=== PATIENT | male | born 1965 | race Hispanic/Latino ===

== ENCOUNTER → 2018-10-24 | Day surgery (SDC) | payer BC ==
[~2018-10-24] MED LIST: BACLOFEN10 MG PO; CIALIS5 MG PO; DEXAMETHASONE SOD PHOS INJ 4 MG/ML VIAL ONE; EPHEDRINE SULFATE INJ 50 MG/10 ML SYR ONE; GABAPENTIN100 MG; GABAPENTIN300 MG PO; IOPAMIDOL 610MG/1ML 300 MG/ML VIAL IV ONE; JANUVIA100 MG PO; LEVOFLOXACIN 500MG/D5W 100ML 100 ML IV ONE; LIDOCAINE HCL 2% LOCAL INJ 5 ML SDV VIAL INJ ONE; LISINOPRIL10 MG PO; METFORMIN HCL1000 MG PO; MIDAZOLAM HCL 2 MG/2 ML VIAL ONE; OMEGA-31000 MG; OMEGA-31000 MG PO; ONDANSETRON HCL INJ 2MG/ML 2ML 2 MG/ML VIAL ONE; PROPOFOL IV EMULSION 10 MG/ML 20 ML VIAL ONE; SEVOFLURANE INHAL SOLN 250 ML PEN BTL ONE
--- OUTSIDE RECORDS SUMMARY | 2018-10-24 11:37 | XMS REPORT | Clinical Summary ---
Author Author [facility] Organization [facility] Address Unknown Phone Unavailable Care Team Providers Care Internal Sales Engineer Name Role Phone Manohar Eldridge MD PCP Allergies No Known Allergies Medications End Date Status Medication Sig Dispensed Refills Start Date Active metFORMIN (GLUCOPHAGE) 0 1,000 mg tablet 8 Active JANUVIA 100 mg tablet 0 8 Active lisinopril 0 (PRINIVIL,ZESTRIL) 10 mg 8 tablet Active omega-3 acid ethyl esters 0 (LOVAZA) 1 gram capsule 8 Active CIALIS 5 mg tablet 0 8 12/06/2018 Active gabapentin (NEURONTIN) Take 1 tablet 90 tablet 11 600 mg tablet (600 mg 8 total) by mouth 3 (three) times a day. Active ONETOUCH ULTRA BLUE TEST TEST BLOOD 1 STRIP strip test strips SUGAR BID. 8 Active baclofen 5 mg tablet Take 5 mg by 90 tablet 3 mouth 3 9 (three) times a day. 09/11/2018 Discontinued pioglitazone (ACTOS) 30 0 MG tablet 8 12/06/2017 Discontinued gabapentin (NEURONTIN) 0 300 mg capsule 8 02/18/2018 Discontinued cyclobenzaprine Take 1 tablet 60 tablet 1 (FLEXERIL) 5 mg tablet (5 mg total) 8 by mouth 2 (two) times a day as needed for muscle spasms for up to 30 days. 12/20/2017 Discontinued predniSONE (DELTASONE) 10 Take 10 mg by 0 mg tablet mouth 3 (three) times a day. 04/05/2018 Discontinued clindamycin (CLEOCIN) 300 Take 600 mg 0 MG capsule by mouth 3 (three) times a day. 04/05/2018 Discontinued ciprofloxacin (CIPRO) 500 Take 500 mg 0 MG tablet by mouth 2 (two) times a day. 12/27/2017 predniSONE (DELTASONE) 10 Take 1 tablet 21 tablet 0 mg tablet (10 mg total) 8 by mouth 3 (three) times a day for 7 days. 01/19/2018 diphenhydrAMINE Take 1 60 capsule 0 (BENADRYL) 25 mg capsule capsule (25 8 mg total) by mouth every 6 (six) hours as needed for itching for up to 30 days. 12/27/2017 Discontinued tadalafil (CIALIS, 0 ADCIRCA) 5 MG tablet 8 04/05/2018 Discontinued montelukast (SINGULAIR) TK 1 T PO QD 3 10 mg tablet HS 8 04/05/2018 Discontinued cyclobenzaprine TAKE 1 60 tablet 0 (FLEXERIL) 5 mg tablet TABLET(5 MG) 8 BY MOUTH TWICE DAILY NEEDED FOR MUSCLE SPASMS 09/11/2018 Discontinued pioglitazone (ACTOS) 45 Take 45 mg by 0 MG tablet mouth daily. 05/05/2018 tiZANidine (ZANAFLEX) 2 Take 1 tablet 60 tablet 11 MG tablet (2 mg total) 9 by mouth every 12 (twelve) hours as needed for muscle spasms for up to 30 days. 10/11/2018 lidocaine (LIDODERM) 5 % Place 1 patch 30 patch 0 on the skin 9 daily for 30 days. Remove & Discard patch within 12 hours or as directed by MD Active Problems Problem Noted Date Cellulitis of right lower extremity 12/19/2017 Bilateral lumbar radiculopathy Cervical radiculopathy at C7 Idiopathic progressive polyneuropathy Encounters Care Team Description Date Type Specialty Daphnie Shah MD Canceled (Patient) 10/23/2018 Hospital Radiology Encounter Chris Braden MD Enlarged prostate with urinary obstruction (Primary Dx) 09/17/2018 Transcribe Access Orders Daphnie Shah MD Weakness of both lower extremities (Primary Dx); Ataxia; Lumbar radiculopathy 09/11/2018 Office Visit Neurology Daphnie Shah MD Lumbar radiculopathy 06/11/2018 Hospital Radiology Encounter Daphnie Shah MD Cervical radiculopathy (Primary Dx); Lumbar radiculopathy; Weakness of both legs 06/05/2018 Office Visit Neurology Ольга House [place] 04/24/2018 Telephone Neurology Daphnie Shah MD Neuropathy (Primary Dx); 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); Lumbar radiculopathy, chronic; Muscle stiffness 04/05/2018 Office Visit Neurology Daphnie Shah MD 02/18/2018 Refill Neurology Daphnie Shah MD 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) (Primary Dx) 12/27/2017 Office Visit Neurology Sonny Spencer MD Gupta, Manohar Fleming MD Cellulitis of right lower extremity (Primary Dx); Dermatitis 12/19/2017 Emergency General Internal Medicine - 12/20/2017 Daphnie Shah MD Peripheral polyneuropathy (Primary Dx); Diabetic polyneuropathy associated with diabetes mellitus due to underlying condition 12/06/2017 Office Visit Neurology after 10/23/2017 Immunizations Name Dates Previously Given Next Due FLUCELVAX QUAD PF (0.5mL 12/20/2017 syringe) Pneumococcal 12/20/2017 Polysaccharide Family History Medical History Relation Name Comments Hypertension Father Relation Name Status Comments Father Mother Social History Date Tobacco Use Types Packs/Day Years Used Never Smoker Smokeless Tobacco: Never Used Alcohol Use Drinks/Week oz/Week Comments No Sex Assigned at Date Recorded Not on file Industry Job Start Date Occupation Not on file Not on file Not on file Travel End Travel History Travel Start No recent travel history available. Last Filed Vital Signs Time Taken Vital Sign Reading 09/11/2018 2:37 PM CDT Blood Pressure 136/95 09/11/2018 2:37 PM CDT Pulse 93 06/05/2018 12:59 PM CDT Temperature 37.3 C (99.2 F) 06/11/2018 8:18 AM CDT Respiratory Rate 16 06/11/2018 9:36 AM CDT Oxygen Saturation 95% - Inhaled Oxygen - Concentration 09/11/2018 2:37 PM CDT Weight 117 kg (259 lb) 09/11/2018 2:37 PM CDT Height 180.3 cm (5' 11") 09/11/2018 2:37 PM CDT Body Mass Index 36.12 Plan of Treatment Care Team Description Date Type Specialty Daphnie Shah MD [facility] [address] [address] [phone] 10/30/2018 Office Visit Neurology Health Maintenance Due Date Last Done Comments DIABETIC RETINAL EYE EXAM 1965 DIABETIC FOOT EXAM 11/18/1977 URINE MICROALBUMIN 11/18/1977 COLONOSCOPY SCREENING 11/18/2017 SHINGLES VACCINES (#1) 11/18/2017 INFLUENZA VACCINE 10/18/2018 12/20/2017 Procedures Comments Procedure Name Priority Date/Time Associated Diagnosis US PROSTATE Routine 10/09/2018 Enlarged prostate with 11:01 AM CDT urinary obstruction CT HEAD WO CONTRAST Routine 10/09/2018 Weakness of both lower 10:39 AM CDT extremities Ataxia ACETYLCHOLINE RECEPTOR Routine 09/11/2018 Weakness of both lower MODULATING AB 3:11 PM CDT extremities ACETYLCHOLINE RECEPTOR Routine 09/11/2018 Weakness of both lower BLOCKING AB 3:11 PM CDT extremities ACETYLCHOLINE RECEPTOR Routine 09/11/2018 Weakness of both lower BINDING AB 3:11 PM CDT extremities LACTIC ACID LEVEL Routine 09/11/2018 Weakness of both lower 3:11 PM CDT extremities IR EPIDURAL INJECTION Routine 06/11/2018 Lumbar radiculopathy LUMBAR 10:15 AM CDT ESTIMATED GFR STAT 06/11/2018 8:08 AM CDT PARTIAL THROMBOPLASTIN STAT 06/11/2018 TIME (PTT) 8:08 AM CDT PROTHROMBIN TIME WITH INR STAT 06/11/2018 8:08 AM CDT BASIC METABOLIC PANEL STAT 06/11/2018 8:08 AM CDT HC COMPLETE BLD COUNT STAT 06/11/2018 W/AUTO DIFF 8:08 AM CDT SEDIMENTATION RATE Routine 06/05/2018 Weakness of both legs 1:50 PM CDT GAD65 AB ASSAY, S Routine 06/05/2018 Weakness of both legs 1:50 PM CDT CREATINE KINASE, TOTAL Routine 06/05/2018 Weakness of both legs (CPK) 1:50 PM CDT THYROID STIMULATING Routine 06/05/2018 Weakness of both legs HORMONE 1:50 PM CDT EMG Routine 04/16/2018 Neuropathy 1:42 PM 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 POC GLUCOSE Routine 12/20/2017 6:06 AM CDT POC GLUCOSE Routine 12/19/2017 7:43 PM CDT POC GLUCOSE Routine 12/19/2017 4:26 PM CDT ESTIMATED GFR STAT 12/19/2017 10:34 AM CDT COMPREHENSIVE METABOLIC STAT 12/19/2017 PANEL 10:34 AM CDT HC COMPLETE BLD COUNT STAT 12/19/2017 W/AUTO DIFF 10:34 AM CDT TX CRITICAL CARE, E/M Routine 12/19/2017 30-74 MINUTES 10:27 AM CDT TEST IN QUESTION - NO Routine 12/06/2017 TEST FOR CONTAINER 12:00 PM CDT HIV-1 GENOTYPING Routine 12/06/2017 Peripheral polyneuropathy 12:00 PM CDT VITAMIN B6 LEVEL, PLASMA Routine 12/06/2017 Peripheral polyneuropathy 11:54 AM CDT FOLATE LEVEL Routine 12/06/2017 Peripheral polyneuropathy 11:54 AM CDT SERUM ELECTROPHORESIS Routine 12/06/2017 Peripheral polyneuropathy 11:54 AM CDT RPR SCREEN Routine 12/06/2017 Peripheral polyneuropathy 11:54 AM CDT HEMOGLOBIN A1C Routine 12/06/2017 Peripheral polyneuropathy 11:54 AM CDT THYROID STIMULATING Routine 12/06/2017 Peripheral polyneuropathy HORMONE 11:54 AM CDT VITAMIN B12 LEVEL Routine 12/06/2017 Peripheral polyneuropathy 11:54 AM CDT after 10/23/2017 Results * US Prostate (10/09/2018 11:01 AM CDT) Specimen Narrative Performed At EXAMINATION:US PROSTATE [facility] CLINICAL HISTORY:N40.1 Benign prostatic hyperplasia with lower urinary tract symptoms, N13.8 Other obstructive and reflux uropathy, ENLARGED PROSTATE COMPARISON:None TECHNIQUE: Transrectal ultrasound of the prostate IMPRESSION: 1.Prostate overall measures 4.9 x 3.6 x 5.5 cm (estimated volume 50 cc). 2.Enlarged heterogeneous central gland with small calcifications consistent with BPH. 3.No discrete, dominant mass seen in the peripheral zone. 4.Seminal vesicles are symmetric. [id number] Procedure Note Interface, Radiology Results Incoming - 10/09/2018 12:03 PM CDT EXAMINATION: US PROSTATE CLINICAL HISTORY: N40.1 Benign prostatic hyperplasia with lower urinary tract symptoms, N13.8 Other obstructive and reflux uropathy, ENLARGED PROSTATE COMPARISON: None TECHNIQUE: Transrectal ultrasound of the prostate IMPRESSION: 1. Prostate overall measures 4.9 x 3.6 x 5.5 cm (estimated volume 50 cc). 2. Enlarged heterogeneous central gland with small calcifications consistent with BPH. 3. No discrete, dominant mass seen in the peripheral zone. 4. Seminal vesicles are symmetric. [id number] Performing Organization Address City/State/Zipcode Phone Number [facility] [address] [place] [address] * CT Head Wo Contrast (10/09/2018 10:39 AM CDT) Specimen Narrative Performed At EXAMINATION:CT HEAD WO CONTRAST [facility] CLINICAL HISTORY:R29.898 Other symptoms and signs involving the musculoskeletal system, R27.0 Ataxiaunspecified, Ataxia and leg weakness COMPARISON:None. FINDINGS: There is no evidence of acute hemorrhage, mass lesion, or midline shift. The foley-white matter differentiation is preserved with no evidence of acute territorial infarction. Ventricles, sulci, and cisterns are age-appropriate in size and configuration. There is no extra-axial fluid collection. Visualized paranasal sinuses and mastoid air cells are clear. Bones, orbits, and soft tissues are unremarkable All CT images were acquired using low-dose technique with automated exposure control. IMPRESSION: No acute intracranial hemorrhage or mass effect. [id number] Procedure Note Hm Interface, Radiology Results Incoming - 10/09/2018 10:51 AM CDT EXAMINATION: CT HEAD WO CONTRAST CLINICAL HISTORY: R29.898 Other symptoms and signs involving the musculoskeletal system, R27.0 Ataxia unspecified, Ataxia and leg weakness COMPARISON: None. FINDINGS: There is no evidence of acute hemorrhage, mass lesion, or midline shift. The foley-white matter differentiation is preserved with no evidence of acute territorial infarction. Ventricles, sulci, and cisterns are age-appropriate in size and configuration. There is no extra-axial fluid collection. Visualized paranasal sinuses and mastoid air cells are clear. Bones, orbits, and soft tissues are unremarkable All CT images were acquired using low-dose technique with automated exposure control. IMPRESSION: No acute intracranial hemorrhage or mass effect. [id number] Performing Organization Address City/[facility]/Zipcode Phone Number [facility] [address] [place] [address] * Acetylcholine receptor blocking Ab (09/11/2018 3:11 PM CDT) Acetylcholine <15 <15 % Inhibition [facility] DIAGNOST[facility]/VIN blocking Ab [facility] Specimen Blood Resulting Agency Comment Performing Organization Information: Site ID: [id number] Name: [facility], Address: [address] [place] [phone] Director: Leta Benavides MD,PhD,TYE Performing Organization Address City/[facility]/Zipcode Phone Number [facility] [id number] [place] [address] [facility] [address] * Acetylcholine receptor modulating Ab (09/11/2018 3:11 PM CDT) Acetylcholine 16 % Inhibition [facility] receptor Comment: DIAGNOSTICS/VIN modulating Ab [facility] Reference Range: <32% INHIBITION This test was developed and its analytical performance characteristics have been determined by [facility]. It has not been cleared or approved by FDA. This assay has been validated pursuant to the CLIA regulations and is used for clinical purposes. Specimen Blood Resulting Agency Comment Performing Organization Information: Site ID: [id number] Name: [employer], Address: [address] [place] [phone] Director: Leta Benavides MD,PhD,TYE Performing Organization Address [facility] Phone Number [facility] [employer] [facility] [phone] [facility] [address] * Acetylcholine receptor binding Ab (09/11/2018 3:11 PM CDT) Acetylcholine <0.30 nmol/L [facility] receptor Comment: DIAGNOSTICS/VIN binding Ab Reference Ranges for [facility] Acetylcholine Receptor Binding Antibody: Negative: < or=0.30 nmol/L Equivocal:0.31-0.49 nmol/L Positive: > or=0.50 nmol/L Specimen Blood Resulting Agency Comment Performing Organization Information: Site ID: [id number] Name: [facility], Address: [address] [place] [phone] Director: Leta Benavides MD,PhD,TYE Performing Organization Address [facility] Center[facility] Phone Number [email or web address] [address] [place] [address] [facility] [id number] * Lactic acid level (09/11/2018 3:11 PM CDT) Lactic acid 2.3 (H) 0.4 - 1.8 mmol/L [facility] [employer] [facility] II Specimen Blood Resulting Agency Comment Performing Organization Information: Site ID: [id number] Name: [facility] Address: [address] [place] [phone] Director: Dr. Sidney Cox Performing Organization Address [facility]/Zipcode Phone Number [facility] [employer] [place] [address] II * IR Epidural Injection Lumbar (06/11/2018 10:15 AM CDT) Specimen Narrative Performed At EXAMINATION:IR EPIDURAL INJECTION LUMBAR [facility] CLINICAL HISTORY:M54.16 Radiculopathylumbar region, Lumbar radiculopathy OPERATORS: Dr.Nassim Henrry MD CONSENT: The risks and benefits of the procedure were fully explained to the patient in detail and all the patient's questions were answered. The patient agreed to proceed with the procedure and signed an informed consent. TECHNIQUE: The patient was brought to the angio suite and placed on the fluoroscopy table in prone position. The patient's lumbar region was prepped and draped in standard sterile fashion. Under fluoroscopy, L4-C8pjmsi was localized. The skin over that region was infiltrated with 2% buffered lidocaine. Under real-time fluoroscopic guidance, a 20 gauge Tuohy needle was advanced percutaneously into the posterior epidural space in the spinal canal via paramedial intralaminar approach at L4-Q4eizax using sudden loss of resistance technique. After negative aspiration for blood and cerebrospinal fluid, 2 cc of nonionic contrast agent was slowly injected. Epidurogram demonstrates contrast to flow in the epidural space extending from L3 S1. Confirmation of the aspirate of contrast agent within the lumbar epidural space was made with fluoroscopic imaging in AP and lateral views. Subsequently 3 cc of Marcaine 0.75% and 9 milligram of Celestone was injected into the epidural space. The needle was then withdrawn and hemostasis was achieved with adequate pressure. The patient tolerated the procedure well without any immediate complications. TOTAL FLUOROSCOPY TIME: 1.6 minutes. Total fluoroscopic exposure images was 3 images. Total radiation exposure was 34 mGy. IMMEDIATE POST PROCEDURE FOLLOW-UP: The patient was observed in the radiology holding area for 2 hours. At the conclusion of the observation period, the patient expressed 100 percent of the baseline pain. IMPRESSION: Successful uncomplicated fluoroscopic guided lumbar epidural steroid injection at L4-K3vejpy. [id number] Procedure Note Hm Interface, Radiology Results Incoming - 06/11/2018 10:28 AM CDT EXAMINATION: IR EPIDURAL INJECTION LUMBAR CLINICAL HISTORY: M54.16 Radiculopathy lumbar region, Lumbar radiculopathy OPERATORS: Dr. Washington Sales MD CONSENT: The risks and benefits of the procedure were fully explained to the patient in detail and all the patient's questions were answered. The patient agreed to proceed with the procedure and signed an informed consent. TECHNIQUE: The patient was brought to the angio suite and placed on the fluoroscopy table in prone position. The patient's lumbar region was prepped and draped in standard sterile fashion. Under fluoroscopy, L4-L5 level was localized. The skin over that region was infiltrated with 2% buffered lidocaine. Under real-time fluoroscopic guidance, a 20 gauge Tuohy needle was advanced percutaneously into the posterior epidural space in the spinal canal via paramedial intralaminar approach at L4-L5 level using sudden loss of resistance technique. After negative aspiration for blood and cerebrospinal fluid, 2 cc of nonionic contrast agent was slowly injected. Epidurogram demonstrates contrast to flow in the epidural space extending from L3 S1. Confirmation of the aspirate of contrast agent within the lumbar epidural space was made with fluoroscopic imaging in AP and lateral views. Subsequently 3 cc of Marcaine 0.75% and 9 milligram of Celestone was injected into the epidural space. The needle was then withdrawn and hemostasis was achieved with adequate pressure. The patient tolerated the procedure well without any immediate complications. TOTAL FLUOROSCOPY TIME: 1.6 minutes. Total fluoroscopic exposure images was 3 images. Total radiation exposure was 34 mGy. IMMEDIATE POST PROCEDURE FOLLOW-UP: The patient was observed in the radiology holding area for 2 hours. At the conclusion of the observation period, the patient expressed 100 percent of the baseline pain. IMPRESSION: Successful uncomplicated fluoroscopic guided lumbar epidural steroid injection at L4-L5 level. [id number] Performing Organization Address City/State/Zipcode Phone Number [facility] [address] [place] [address] * Estimated GFR (06/11/2018 8:08 AM CDT) Only the most recent of 2 results within the time period is included. Estimated GFR >=90 mL/min/1.73 m2 [facility] Comment: [facility] G1 >=90 Normal or high G2 60-89Mildly decreased [id number] Mildly to moderately decreased [id number] Moderately to severely decreased G4 15-29Severely decreased G5 <15Kidney failure The eGFR was calculated using the Chronic Kidney Disease Epidemiology Collaboration (CKD-EPI) equation. Interpretation is based on recommendations of the National Kidney Foundation-Kidney Disease Outcomes Quality Initiative (NKF-KDOQI) published in 2014. Specimen Plasma specimen Performing Organization Address City/[facility]/Zipcode Phone Number [facility] [address] [place] [address] PATHOLOGY AND [facility] [address] * Partial thromboplastin time, activated (06/11/2018 8:08 AM CDT) PTT 29.1 23.0 - 36.0 sec [facility] Comment: [facility] PTT therapeutic range for [facility] unfractionated heparin is HOSPITAL 61.0-112.0 seconds which corresponds to Anti-Xa 0.3-0.7 U/ml. Note:Change in Panic Value The PTT Panic Value is changing from 110 sec. to 100 sec. due to new instrumentation and reagents. Correlation studies have been performed to validate this result. Specimen Blood Performing Organization Address [facility] Centerbcode Phone Number [facility] [address] [facility] [address] * Prothrombin time with INR (06/11/2018 8:08 AM CDT) Prothrombin 12.6 11.5 - 14.5 sec [facility] time [facility] INR 0.97 [facility] Comment: [facility] For patients on anticoagulant CRISTOPHER therapy, reference ranges HOSPITAL below: Indication: INR Value Treatment of Venous Thrombosis, 2.0-3.0 pulmonary emboli, or prophylaxis of a venous thrombosis, or systemic emboli. High dose, high risk patients 3.0-4.5 with mechanical valves. NOTE:INR values over 3.0 are sometimes associated with gastrointestinal hemorrhage, especially values over 4.0. Specimen Blood Performing Organization Address City/[facility]/Zipcode Phone Number [facility] [address] [facility] [place] [id number] [address] * CBC with platelet and differential (06/11/2018 8:08 AM CDT) Only the most recent of 2 results within the time period is included. [facility] WBC 6.5 4.2 - 11.0 k/uL [facility] RBC 4.35 4.04 - 5.86 m/uL [facility] HGB 13.1 13.0 - 17.3 g/dL [facility] HCT 40.9 34.0 - 45.0 % [facility] MCV 94.0 80.0 - 98.0 fL [facility] MCH 30.1 27.0 - 34.0 pg [facility] MCHC 32.0 31.5 - 36.5 g/dL [facility] RDW - SD 44.6 37.0 - 51.0 fL [facility] MPV 11.3 (H) 7.4 - 10.4 fL [facility] Platelet count 215 150 - 400 k/uL [facility] Nucleated RBC 0.00 /100 WBC [facility] Neutrophils 62.3 36.0 - 66.0 % [facility] Lymphocytes 28.7 24.0 - 44.0 % [facility] Monocytes 6.5 (H) 0.0 - 6.0 % [facility] Eosinophils 1.4 0.0 - 6.0 % [facility] Basophils 0.3 0.0 - 1.2 % [facility] Immature 0.8 0.0 - 1.0 % [facility] granulocytes [facility] Specimen Blood Performing Organization Address City/State/Zipcode Phone Number [facility] DEPART[facility] OF [facility] [place] [address] PATHOLOGY AND GENOMIC MEDICINE [place] [id number] [address] * Basic metabolic panel (06/11/2018 8:08 AM CDT) [facility] Sodium 137 135 - 150 mEq/L [facility] Potassium 4.2 3.5 - 5.0 mEq/L [facility] Chloride 99 98 - 112 mEq/L [facility] CO2 24 24 - 31 mmol/L [facility] Anion gap 14@ANIO 7 - 15 mEq/L [facility] BUN 30 (H) 7 - 18 mg/dL [facility] Creatinine 0.60 (L) 0.70 - 1.20 mg/dL [facility] Glucose 213 (H) 65 - 100 mg/dL [facility] Calcium 9.7 8.3 - 10.2 mg/dL [facility] Specimen Plasma specimen Performing Organization Address [facility] Phone Number [facility] DEPARTMENT OF [address] [facility] [place] [address] PATHOLOGY AND GENOMIC MEDICINE [address] * [id number] Ab assay, S (06/05/2018 1:50 PM CDT) Glutamic acid 15 (H) <5 IU/mL [facility]ST decarboxylase Comment: DIAGNOSTICS/VIN 65 Ab This test was performed using [facility] the GAD65 NATALIA method. New method, NATALIA, is standardized against the International reference preparation 97/550, is reported in International Units/mL (IU/mL) and a new reference range was implemented. Specimen Blood Resulting Agency Comment Performing Organization Information: Site ID: [id number] Name: [facility], Address: [address] [place] [phone] Director: Leta Benavides MD,PhD,TYE Performing Organization Address [facility] Phone Number [email or web address]/CONWAY [address] [place] [address] [facility] [address] * Sedimentation rate (06/05/2018 1:50 PM CDT) Sedimentation 25 (H) < OR=15 mm/h [facility]ST rate DIAGNOSTICS [place]MA Specimen Blood Resulting Agency Comment Performing Organization Information: Site ID: [id number] Name: [facility] Address: [address] [place] [phone] Director: Gypsy Dumont Performing Organization Address City/[facility] Phone Number [facility] [address] [address] * Thyroid stimulating hormone (06/05/2018 1:50 PM CDT) Only the most recent of 2 results within the time period is included. Pathologist [facility] TSH 2.17 0.40 - 4.50 mIU/L [employer] [facility] Specimen Blood Resulting Agency Comment Performing Organization Information: Site ID: [facility] Name: [facility] Address: [address] [place] [phone] Director: Gypsy Dumont Performing Organization Address [facility] Phone Number [address] [address] * Creatine kinase, total (CPK) (06/05/2018 1:50 PM CDT) Pathologist [facility] Creatine kinase 133 44 - 196 U/L [facility] [employer] [place] Specimen Blood Resulting Agency Comment Performing Organization Information: Site ID: [facility] Name: [facility] Address: [address] [place] [phone] Director: Gypsy Dumont Performing Organization Address [facility] Phone Number [address] [address] * EMG general request (04/16/2018 1:42 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 Sesay complains of numbness and tingling in his bilateral legs, feet and arms, also complains of lumbar pain that extends down his legs, has diabetes and is being evaluated for neuropathy and lumbar radiculopathy. 1) Left median and ulnar motor latencies are mildly delayed with slightly slowed velocities, low normal median amplitudes and normal ulnar amplitudes. 2) Right peroneal motor latency is normal and left peroneal motor latency is mildly delayed; velocities are bilaterally slowed with small amplitudes. 3) Tibial motor latencies are bilaterally mildly delayed with slowed velocities and small amplitudes. 4) Left median, ulnar and bilateral peroneal and tibial F Wave responses are delayed. 5) Left median palmar, median digital, ulnar and bilateral sural and superficial peroneal sensory latencies are delayed with small amplitudes. 6) Intramuscular recordings of the left arm suggest minimal chronic C7 denervation. 7) Intramuscular recordings of the legs suggest mild chronic bilateral L5 denervation. 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 Sammy Villalpando M.D. Narrative Performed At NERVE CONDUCTION AND ELECTROMYOGRAPHY REPORT [facility] [place], [facility]th [facility]; [place], [place] [address]; Name: Josias Sesay Date of Procedure: April 16, 2018Location: Sex: Male Date of :69 Referring Physician: Daphnie Shah M.D. FAX: Patient is 5 11 ; 265 lbs.; RL 31.6 C; LA 31.5 C; LL 31.9 C Nerve Conduction(Latencies in msec, Amplitudes uV, Distance cm, Velocity M/Sec) Right Motor Nerves Dist. Lat. Prox lat. D. amp. P. Amp.Dist. Velocity Right Peroneal EDB 4.613.82.8 2.330.6 33.3 Right Tibial5.318.41.6 0.836.0 27.3 Right Peroneal F Wave 67.3 Right Tibial F Wave 67.5 Right Sensory Nerves Dist. Lat. Prox lat. Dist. amp. Prox Amp. Distance Velocity Right Sural4.4 5.8 14.0 Right Superficial Peroneal 5.1 4.8 12.0 Left Motor Nerves Dist. Lat. Prox lat. D. amp. P. Amp.Dist. Velocity Left Median4.49.97.0 6.328.8 45.0 Left Ulnar (below elb) 3.37.68.1 7.618.0 41.5 Left Peroneal EDB 5.215.31.7 1.533.0 32.7 Left Tibial5.117.83.4 3.027.8 29.8 Left Median F Wave 35.6 Left Ulnar F Wave 35.2 Left Peroneal F Wave 66.0 Left Tibial F Wave 66.0 Left Sensory Nerves Dist. Lat. Prox lat. Dist. amp. Prox Amp. Distance Velocity Left Median Palmar 2.7 35.3 8.0 Left Median Digital 3.8 9.8 13.0 Left Ulnar3.5 8.7 11.0 Left Sural4.7 7.0 14.0 Left Superficial Peroneal 4.3 6.0 12.0 Electromyography (Motor Unit in mV; H=High; L=Low; P=Polyphasic; NS=Non-specific) Right LegFibs. Pos. Waves Fasc. PolyphasiaMotor UnitsRecruitment Vas. Medialiswnl wnlwnl wnlwnlwnl Ant. Tibialiswnl wnlwnl 20HPwnl-1 Peroneus Longuswnl wnlwnl 20HPwnl-1 Gastronemiuswnl wnlwnl wnlwnlwnl Ext. Dig. Breviswnl wnlwnl 20HPwnl-1 Left ArmFibs. Pos. Waves Fasc. PolyphasiaMotor UnitsRecruitment Deltoid wnl wnlwnl wnlwnlwnl Biceps wnl wnlwnl wnlwnlwnl Triceps wnl wnlwnl 20HPwnlNS Brachioradialiswnl wnlwnl wnlwnlwnl Ext. Dig. Comm.wnl wnlwnl 20HPwnlNS lst D. Interosseous wnl wnlwnl wnlwnlwnl Left LegFibs. Pos. Waves Fasc. PolyphasiaMotor UnitsRecruitment Vas. Medialiswnl wnlwnl wnlwnlwnl Ant. Tibialiswnl wnlwnl 20HPwnl-1 Peroneus Longuswnl wnlwnl 20HPwnl-1 Gastronemiuswnl wnlwnl wnlwnlwnl Ext. Dig. Breviswnl wnlwnl 20HPwnl-1 * POC glucose (12/20/2017 6:06 AM CDT) Only the most recent of 3 results within the time period is included. POC glucose 260 (H) 65 - 100 mg/dL [facility] Comment: OF PATHOLOGY Meter ID: [id number] AND GENOMIC Office Inspector: Kristi Alston MEDICINE Specimen Performing Organization Address City/State/Zipcode Phone Number [facility] [place] [facility] OF [address] [place] AND [facility]OMIC [facility] * Comprehensive metabolic panel (12/19/2017 10:34 AM CDT) Sodium 137 135 - 150 mEq/L [facility] [place] [facility] OF PATHOLOGY AND GENOMIC MEDICINE Potassium 4.8 3.5 - 5.0 mEq/L [facility] [place] [facility] OF PATHOLOGY AND GENOMIC MEDICINE Chloride 95 (L) 98 - 112 mEq/L [facility] [place] [facility] OF PATHOLOGY AND GENOMIC MEDICINE CO2 27 24 - 31 mmol/L [facility] [place] [facility] OF PATHOLOGY AND GENOMIC MEDICINE Anion gap 15@ANIO 7 - 15 mEq/L [facility] [place] [facility] OF PATHOLOGY AND GENOMIC MEDICINE BUN 16 7 - 18 mg/dL [facility] [place] [facility] OF PATHOLOGY AND GENOMIC MEDICINE Creatinine 0.80 0.70 - 1.20 mg/dL [facility] [place] [facility] OF PATHOLOGY AND GENOMIC MEDICINE Glucose 250 (H) 65 - 100 mg/dL [facility] [place] [facility] OF PATHOLOGY AND GENOMIC MEDICINE Calcium 10.2 8.3 - 10.2 mg/dL [facility] [place] [facility] OF PATHOLOGY AND GENOMIC MEDICINE Protein 8.2 6.3 - 8.3 g/dL [facility] [place] [facility] OF PATHOLOGY AND GENOMIC MEDICINE Albumin 4.4 3.5 - 5.0 g/dL [facility] [place] [facility] OF PATHOLOGY AND GENOMIC MEDICINE A/G ratio 1.2 0.7 - 3.8 [facility] [place] [facility]MENT OF PATHOLOGY AND GENOMIC MEDICINE Alkaline 75 0 - 129 U/L [facility] [place] DE[facility] phosphatase OF PATHOLOGY AND GENOMIC MEDICINE AST 33 10 - 50 U/L [facility] [place] [facility] OF PATHOLOGY AND GENOMIC MEDICINE ALT 31 5 - 50 U/L [facility] [place] DE[facility] OF PATHOLOGY AND GENOMIC MEDICINE Total bilirubin 0.4 0.2 - 1.2 mg/dL [facility] [place] DE[facility]MENT OF PATHOLOGY AND GENOMIC MEDICINE Specimen Plasma specimen Performing Organization Address City/State/Zipcode Phone Number [facility] [place] DE[facility] [address] [place] [address] PATHOLOGY [facility] * CRITICAL CARE (12/19/2017 10:27 AM CDT) Narrative Performed At Sonny Spencer MD 12/19/2017 10:12 PM Critical Care Performed by: RIANNA MINER Authorized by: SONNY SPENCER Critical care provider statement: Critical care time (minutes):60 Critical care start time:12/19/2017 10:40 AM Critical care end time:12/19/2017 11:40 AM Critical care time was exclusive of:Separately billable procedures and treating other patients Critical care was necessary to treat or prevent imminent or life-threatening deterioration of the following conditions:Sepsis Critical care was time spent personally by me on the following activities:Blood draw for specimens, discussions with primary provider, examination of patient, ordering and performing treatments and interventions, ordering and review of laboratory studies, re-evaluation of patient's condition and review of old charts Julio 'yes' if you are taking over critical care for this patient from another provider.: no * TEST IN QUESTION - NO TEST FOR CONTAINER (12/06/2017 12:00 PM CDT) [facility] TEST IN Comment: QUEST QUESTION - NO NO TEST(S) ARE INDICATED ON DIAGNOSTICS TEST FOR THE REQUISITION FOR THE MONTEZUMA CONTAINER FOLLOWING SPECIMEN(S). SPECIMEN(S) FROZEN PPT TUBE [facility] RECEIVED: [employer] SRIVASTAVA Comment Comment: [employer] To prevent further delays in DIAGNOSTICS testing, please complete MONTEZUMA information above and fax to [phone] to resolve this order. Specimen Resulting Agency Comment Performing Organization Information: Site ID: RGA Name: [facility] Address: [address] [place] [phone] Director: Gypsy Dumont Performing Organization Address City/State/Zipcode Phone Number [email or web address] [place] [phone] * HIV-1 genotyping (12/06/2017 12:00 PM CDT) [facility] HIV-1 genotype NOT DETECTED FOCUS Comment: DIAGNOSTICS We are unable to obtain a Genotype from this sample. The most common reasons for failure to genotype are insufficient viral load, mutations in the viral genome at the assay priming sites, and presence of inhibitory substance in the sample. Please correlate this result with any recent viral load for this patient and resubmit if clinically warranted. A minimum viral load of 400 copies/mL is required for testing. HIV Subtype: NOT DETERMINED Antiretroviral drugsResistance Mutations Detected Predicte d ! ! NRTIs ! ! ZDV (zidovudine or Retrovir)!N/A! ABC (abacavir or Ziagen)!N/A! ddI (didanosine or Videx) !N/A! 3TC (lamivudine or Epivir)!N/A! FTC (emtricitabine or Emtriva)!N/A! d4T (stavudine or Zerit)!N/A! TDF (tenofovir or Viread) !N/A! __!___! ! ! NNRTIs ! ! ETR (etravirine or Intelence) !N/A! EFV (efavirenz or Sustiva)!N/A! NVP (nevirapine or Viramune)!N/A! RPV (rilpivirine or Edurant)!N/A! __!___! ! ! PIs ! ! FPV (fos-amprenavir or Lexiva)!N/A! IDV (indinavir or Crixivan) !N/A! NFV (nelfinavir or Viracept)!N/A! SQV (saquinavir or Invirase)!N/A! LPV (lopinavir or Kaletra)!N/A! ATV (atazanavir or Reyataz) !N/A! TPV (tipranavir or Aptivus) !N/A! DRV (darunavir or Prezista) !N/A! ! ! __!___! PRB=PROBABLE OR EMERGING RESISTANCE OTHER MUTATIONS DETECTED: RT GENE MUTATIONS: N/A [place] GENE MUTATIONS: N/A [employer] July 2017 Interpretation Algorithm The method used in this test is RT-PCR and sequencing Of the HIV-1 polymerase gene. The phrases "resistance predicted" and "probable Or emerging resistance" refer to the application of The interpretive rules. The FDA has not reviewed all of the interpretive rules used by the laboratory to predict drug resistance. FDA may not currently recognize some of the HIV gene mutations reported as predictive of drug resistance, but the laboratory considers these mutations to be associated with resistance to anti-viral drugs based on current clinical or scientific studies. The test has been validated pursuant to CLIA regulations and is not considered investigational or for research use only. Treatment decisions should be made in consideration of All relevant clinical and laboratory findings and the prescribing information for the drugs. This test was developed and its analytical performance characteristics have been determined by [facility]. It has not been cleared or approvedby FDA. This assay has been validated pursuant to theCLIA regulations and is used for clinical purposes. Specimen Blood Resulting Agency Comment Performing Organization Information: Site ID: [id number] Name: [facility] Address: [address] [place] [phone] Director: Deshawn Contreras MD Performing Organization Address City/State/[facility] Phone Number [employer] [address] [place] [address] [phone] * RPR screen (12/06/2017 11:54 AM CDT) RPR (monitor) NON-REACTIVE NON-REACTIVE [facility] w/refl titer DIAGNOSTICS [place] Specimen Blood Resulting Agency Comment Performing Organization Information: Site ID: RGA [facility]: [facility] Address: [address] [place] [phone] Director: Gypsy Dumont Performing Organization Address City/[facility] Phone Number [email or web address] [place] [address] [place] [address] * Vitamin B6 level, plasma (12/06/2017 11:54 AM CDT) Vitamin B6 TNP [facility]ST Comment: DIAGNOSTICS [place] * Test not performed. * * No suitable specimen received. * Specimen Blood Resulting Agency Comment Performing Organization Information: Site ID: [id number] Name: [facility] Address: [address] [place] [address] Director: Dennis Oliva M.D., Ph.D Performing Organization Address [facility] Phone Number [email or web address] [address] [address] [place] * Serum electrophoresis (12/06/2017 11:54 AM CDT) Protein 7.5 6.1 - 8.1 g/dL [facility] ING II Albumin, S 4.7 3.8 - 4.8 g/dL [facility] II Izaje-1-nqdbqpa 0.3 0.2 - 0.3 g/dL [facility] n DIAGNOSTICS-[facility] ING II Extbc-4-erseuqi 0.8 0.5 - 0.9 g/dL [facility] n [facility]AGNOSTICS-[facility] ING II Beta-1 globulin 0.5 0.4 - 0.6 g/dL [facility] II Beta-2 globulin 0.3 0.2 - 0.5 g/dL [facility] Gamma, CSF 0.9 0.8 - 1.7 g/dL [facility]G II Interpretation Comment: [facility]ST Normal Electrophoretic Pattern DIAGNOSTICS-CORRINE ING II Specimen Blood Resulting Agency Comment Performing Organization Information: Site ID: [id number] Name: [facility] Address: [address] [place] [address] Director: Dr. Sidney Cox Performing Organization Address City/[facility] Phone Number [employer] [facility] [address] [place] [address] II * Hemoglobin A1c (12/06/2017 11:54 AM CDT) Pathologist [facility] Hemoglobin A1C 7.0 (H) <5.7 % of total Hgb [facility] Comment: DIAGNOSTICS For someone without known SRIVASTAVA diabetes, a hemoglobin A1c value of 6.5% or greater indicates that they may have diabetes and this should be confirmed with a follow-up test. For someone with known diabetes, a value <7% indicates that their diabetes is well controlled and a value greater than or equal to 7% indicates suboptimal control. A1c targets should be individualized based on duration of diabetes, age, comorbid conditions, and other considerations. Currently, no consensus exists regarding use of hemoglobin A1c for diagnosis of diabetes for children. Specimen Blood Resulting Agency Comment Performing Organization Information: Site ID: [facility] Name: [facility] Address: [address] [place] [phone] Director: Gypsy Dumont Performing Organization Address [facility] Phone Number [email or web address] [address] [address] * Folate level (12/06/2017 11:54 AM CDT) Pathologist [facility] Folate 9.7 ng/mL [facility] Comment: [facility] Reference Range Low: <3.4 Borderline:3.4-5.4 Normal:>5.4 Specimen Blood Resulting Agency Comment Performing Organization Information: Site ID: [facility] Name: [facility] Address: [address] [place] [phone] Director: Gypsy Dumont Performing Organization Address [facility] [email or web address] [address] * Vitamin B12 level (12/06/2017 11:54 AM CDT) [facility] Vitamin B12 581 200 - 1,100 pg/mL [employer] MONTEZUMA Specimen Blood Resulting Agency Comment Performing Organization Information: Site ID: [facility] Name: [facility] Address: [address] [place] [phone] Director: Gypsy Dumont Performing Organization Address City/State/Zipcode Phone Number [facility] [place] [address] [place] [address] after 10/23/2017 Insurance Type Payer Benefit Subscriber ID Effective Phone Address Plan / Dates Group PPO BCBS CARLO xxxxxxxxxxxx [id number] BLUE CROSS resent Advance Directives Patient has advance care planning documents on file. For more information, chicho cosby contact: Atif Skinner [address] [place] [address]
--- OUTSIDE RECORDS SUMMARY | 2018-10-24 11:37 | XMS REPORT ---
Author Author [facility] Address Unknown Phone Unavailable Care Team Providers Care Box Lidder Name Role Phone DR BEBE CHRISTIANSON Unavailable Unavailable Problems This patient has no known problems. Allergies, Adverse Reactions, Alerts This patient has no known allergies or adverse reactions. Medications This patient has no known medications. Encounters Start Date/Time End Date/Time Encounter Type Admission Type Attending Clinicians Care Facility Care Department Encounter ID 2018-09-28 10:58:00 2018-09-28 23:59:00 Outpatient C BEBE CHRISTIANSON [facility] [id number]
[2018-10-24 15:00] VITALS: BP 117/78
--- NOTE | 2018-10-24 20:46 | Operative Report ---
DATE OF PROCEDURE: 10/24/2018 SURGEON: Chris Braden MD PREOPERATIVE DIAGNOSES: 1. Flaccid neurogenic bladder. 2. Diabetes mellitus. 3. Organic impotence. POSTOPERATIVE DIAGNOSES: 1. Flaccid neurogenic bladder. 2. Diabetes mellitus. 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 OPERATION: Cystourethroscopy and bilateral retrograde pyelograms. ANESTHETIC: General. INDICATIONS FOR PROCEDURE: Mr. Sesay is a 52-year-old male who presented with a chief complaint of lower urinary tract obstructive symptoms. His blood sugar and his A1c were remarkably elevated with his blood sugar being in the range of 350 and his A1c was about 12.6. His PSA was normal. This patient was placed on the table in lithotomy position and was prepped and draped in a sterile manner after satisfactory anesthesia. A #23 Egyptian cystoscope was used and cystourethroscopy was performed and it was noted that the urethra was normal. The prostatic urethra was about 3 cm long, bilobar and partially occlusive. Cystoscopy was then performed using both right angle and the foroblique lens and the bladder mucosa was normal with no evidence of gross tumor pathology or any papillary lesions. Right retrograde pyelogram was then performed using the #8 bulb tip ureteral catheter inserted at the right ureteral orifice and 5 mL of contrast material was injected. The retrograde performed was normal. Left retrograde pyelogram was performed similarly and was normal. The bladder was drained. Cystoscope removed and the patient was taken to the recovery room in satisfactory condition. Plan for this patient is to be placed on Cipro 500 mg 1 twice a day for 1 week. Ultracet tablet 1 every 6 to 8 hours p.r.n. and was given 15. Flomax 0.4 mg once every night and was given 90. He is to return to the office in 2 weeks and at that time uroflow will be performed. Chris Braden MD MA/RYAN /[id number]
== END | disposition home or self-care (01) ==
LOC: OR 11:32
PROVIDERS: ATTEND Specialist
DX: N31.9 Neuromuscular dysfunction of bladder, unspecified (principal); N40.1 Benign prostatic hyperplasia with lower urinary tract symptoms; N13.8 Other obstructive and reflux uropathy; E11.9 Type 2 diabetes mellitus without complications; N31.2 Flaccid neuropathic bladder, not elsewhere classified; N52.9 Male erectile dysfunction, unspecified; I10 Essential (primary) hypertension; E78.5 Hyperlipidemia, unspecified; M54.9 Dorsalgia, unspecified; Z79.84 Long term (current) use of oral hypoglycemic drugs
CPT/HCPCS: 36415; 52005; 74420; 82948; 93005; J1100; J1956; J2001; J2250; J2405; J2704; Q9967